=== PATIENT | male | born 1990 | race Two or more races ===

== ENCOUNTER 2022-10-19 03:07 | Emergency (ER) | payer BC, OTHER ==
[~2022-10-19] VITALS: Ht 172.7 cm; Wt 90.0 kg
[2022-10-19] MEDS ORDERED: PERCOT PO (04:58)
[2022-10-19] MEDS ORDERED: ONDA-144 PO (04:58)
[2022-10-19] MEDS ORDERED: CEPH-322 PO (04:58)
[2022-10-19] MEDS ORDERED: OXYCODONE W/ ACETAMINOPHEN 5/325MG TABLET PO ONE (05:00)
[2022-10-19 05:05] VITALS: BP 132/99
== END 2022-10-19 05:25 | disposition home or self-care (01) ==
LOC: ER 03:07 → EDBD 03:07 → ER 05:25
DX: S16.1XXA Strain of muscle, fascia and tendon at neck level, initial encounter (principal); R04.0 Epistaxis; V89.2XXA Person injured in unspecified motor-vehicle accident, traffic, initial encounter; Y93.I9 Activity, other involving external motion; Y92.89 Other specified places as the place of occurrence of the external cause; Y99.8 Other external cause status
CPT/HCPCS: 70450; 70486; 71250; 72125; 74176